=== PATIENT | male | born 1945 | race Caucasian/White ===

== ENCOUNTER 2017-06-02 08:30 | Emergency (ER) | payer MEDICARE ==
[~2017-06-02] VITALS: Ht 182.9 cm; Wt 98.4 kg
[2017-06-02] MEDS ORDERED: TOPROL XL50 MG PO (08:41)
[2017-06-02] MEDS ORDERED: VITAMIN D1000 UNIT PO (08:41)
[2017-06-02] MEDS ORDERED: XARELTO10 MG PO (08:41)
[2017-06-02] MEDS ORDERED: SIMVASTATIN10 MG PO (08:42)
[2017-06-02] MEDS ORDERED: ONDANSETRON ODT8 MG PO (12:06)
[2017-06-02] MEDS ORDERED: NORCO 5-325 TA1 EACH PO (12:06)
== END 2017-06-02 12:42 | disposition home or self-care (01) ==
LOC: ED 08:30
DX: N13.2 Hydronephrosis with renal and ureteral calculous obstruction (principal); I48.91 Unspecified atrial fibrillation; R11.2 Nausea with vomiting, unspecified; Z79.899 Other long term (current) drug therapy; Z88.6 Allergy status to analgesic agent
CPT/HCPCS: 74177; 80053; 81001; 85025; 96361; 96374; 96375; 96376; 99284; J1170; J1885; J2405; J7030; Q9967